=== PATIENT | male | born 1950 | race Caucasian/White ===

== ENCOUNTER → 2018-08-17 | Outpatient (CLI) | payer MEDICARE, OTHER ==
[2018-08-17 09:00] LABS: CHOLESTEROL 164 mg/dL (<200); HDL CHOLESTEROL 60 mg/dL (>40); LDL CHOLESTEROL 86 mg/dL (<100); SGOT 24 U/L (15-37); SGPT 28 U/L (30-65); TC:HDL 2.7 Ratio (Not establshd); TRIGLYCERIDE 90 mg/dL (<150); VLDL 18 mg/dL (<40)
[2018-08-17 09:01] LABS: SERUM ASSESSMENT Clear
== END ==
LOC: M.LAB 08:22
DX: I25.10 Atherosclerotic heart disease of native coronary artery without angina pectoris (principal); E78.5 Hyperlipidemia, unspecified; Z85.46 Personal history of malignant neoplasm of prostate